=== PATIENT | male | born 1995 | race American Indian/Alaskan Native ===

== ENCOUNTER 2021-04-30 12:37 | Emergency (ER) | payer OTHER ==
[2021-04-30] MEDS ORDERED: TETANUS,DIPH,PERTUSS(ACELL) VACCINE 0.5 ML SYRINGE IM ONE (13:17)
[2021-04-30] MEDS ORDERED: ACETAMINOPHEN 500 MG TAB PO STA (13:17)
--- NOTE | 2021-04-30 13:20 | Emergency Department Report ---
ED General Adult HPI - General Chief complaint: Fall Stated complaint: HIT HEAD BLACKED OUT, GASH RT EYE Time Seen by Provider: 04/30/21 12:55 Source: patient, police Mode of arrival: Ambulatory Limitations: No Limitations - History of Present Illness Initial comments: 25-year-old -[place] male patient presents in police custody with complaints of head trauma, headache, and neck pain after fall injury onto concrete today. Patient states he did have loss of consciousness for a brief second. He admits to nausea without vomiting. He denies any vision changes, numbness/tingling/weakness in his limbs, difficulty with speech/ambulation, memory loss, or blood thinner use. He is unsure of his last tetanus vaccination. Patient rates pain at 8/10 severity. He denies any other injuries or pain Severity scale (0 -10): 8 - Related Data Previous Rx's Medication Instructions Recorded Last Taken Type Ibuprofen [Motrin 800 MG tab] 800 mg PO Q8HR PRN #20 tablet 04/30/21 Unknown Rx Mupirocin [Bactroban 2% OINT] 1 applic TP TID 7 Days #1 tube 04/30/21 Unknown Rx cephALEXin [Keflex] 500 mg PO Q12HR 7 Days #14 cap 04/30/21 Unknown Rx Allergies Allergy/AdvReac Type Severity Reaction Status Date / Time No Known Allergies Allergy Verified 04/30/21 13:29 ED Review of Systems ROS: Stated complaint: HIT HEAD BLACKED OUT, GASH RT EYE Other details as noted in HPI Constitutional: denies: malaise Eyes: denies: eye pain, vision change Respiratory: denies: shortness of breath Cardiovascular: denies: chest pain Gastrointestinal: nausea. denies: abdominal pain, vomiting Neurological: headache. denies: numbness, paresthesias, confusion, abnormal gait ED Past Medical Hx - Medications Home Medications: Home Medications Medication Instructions Recorded Confirmed Last Taken Type Ibuprofen [Motrin 800 MG tab] 800 mg PO Q8HR PRN #20 tablet 04/30/21 Unknown Rx Mupirocin [Bactroban 2% OINT] 1 applic TP TID 7 Days #1 tube 04/30/21 Unknown Rx cephALEXin [Keflex] 500 mg PO Q12HR 7 Days #14 cap 04/30/21 Unknown Rx ED Physical Exam - General Limitations: No Limitations General appearance: alert, in no apparent distress - Head Head exam: Present: normocephalic. Absent: atraumatic - Expanded Head Exam Expanded Head exam: Present: laceration (2 cm flap laceration noted through right mid eyebrow with mild active bleed, no obvious foreign bodies noted), hematoma (S mall hematoma noted to outer portion of right eyebrow). Absent: racoon eyes, oswald's sign, general tenderness - Eye Eye exam: Present: normal appearance, PERRL, EOMI. Absent: scleral icterus - Neck Neck exam: Present: tenderness (Bilateral paraspinal and spinal tenderness noted to palpation without obvious deformity), full ROM - Respiratory Respiratory exam: Absent: respiratory distress - Cardiovascular Cardiovascular Exam: Present: regular rate - Neurological Exam Neurological exam: Present: alert, oriented X3, CN II-XII intact, normal gait - Expanded Neurological Exam Expanded Cerebellar function: Heel to Laguerre: Normal Sensory exam: Upper Extremity Light Touch: Normal, Lower Extremity Light Touch: Normal Motor strength exam: RUE: 4, LUE: 4, RLE: 4, LLE: 4 Best Eye Response (Timmy): (4) open spontaneously Best Motor Response (Naylor): (6) obeys commands Best Verbal Response (Timmy): (5) oriented Naylor Total: 15 - Psychiatric Psychiatric exam: Present: normal affect, normal mood - Skin Skin exam: Present: warm, dry, intact, normal color. Absent: rash ED Course Vital Signs 04/30/21 12:44 Temperature 98.9 F Pulse Rate 66 Respiratory 18 Rate Blood Pressure 91/76 [Right] O2 Sat by Pulse 97 Oximetry - Laceration /Wound Repair Face Wound Location: face Wound Length (cm): 2 Wound's Depth, Shape: irregular, flap Wound Explored: no foreign body removed Irrigated w/ Saline (ccs): 50 Betadine Prep?: Yes Anesthesia: 1% Lidocaine Volume Anesthetic (ccs): 2 Suture Size/Type: 5:0, proline Number of Sutures: 6 (simple interrupted) Sterile Dressing Applied?: Yes Progress: Minimal bleeding occurred. Patient tolerated procedure well without any immediate complications ED Medical Decision Making - Radiology Data Radiology results: report reviewed CT head/brain wo con, CT cervical spine wo con INDICATION: occipital pain, R forehead lac/hematoma, head inju. TECHNIQUE: CT head and cervical spine without contrast. All CT scans at this location are performed using CT dose reduction for ALARA by means of automated exposure control. COMPARISON: None. FINDINGS: HEAD: Intracranial: Soto-white matter differentiation is maintained. No intracranial hemorrhage. No extra axial collection.. No hydrocephalus. No herniation. Sinuses: Paranasal sinuses and mastoid air cells are essentially clear. Orbits: Globes are intact Calvarium: Right frontal scalp soft tissue swelling. No underlying calvarial fracture. CERVICAL: Alignment: Normal alignment. Vertebrae: No fracture. Vertebral body heights are preserved. C1 and C2 are congruent. Atlantooccipital joint is maintained. Spondylolysis: No significant spondylosis. Soft tissues: No prevertebral soft tissue thickening. Additional findings: No significant additional findings. IMPRESSION: 1. No acute intracranial abnormality. 2.No cervical spine fracture. - Medical Decision Making Laceration repaired. CT head and neck are negative for any acute abnormalities. Pain control with Tylenol and ibuprofen. Neuro exam is normal. Patient is well-appearing and stable for discharge to police custody. Discussed concussion and importance of brain rest. Also discussed signs and symptoms that should prompt immediate return to the ED in detail with patient who verbalizes understanding. Wound care also discussed. Prophylactic antibiotics given Critical care attestation.: If time is entered above; I have spent that time in minutes in the direct care of this critically ill patient, excluding procedure time. ED Disposition Clinical Impression: Head injury, Laceration of face, Neck pain Disposition: 01 HOME / SELF CARE / HOMELESS Is pt being admited?: No Condition: Stable Instructions: Sutured Wound Care, [id number], Head Injury, Adult, Concussion, Adult Prescriptions: Mupirocin [Bactroban 2% OINT] 1 applic TP TID 7 Days #1 tube cephALEXin [Keflex] 500 mg PO Q12HR 7 Days #14 cap Ibuprofen [Motrin 800 MG tab] 800 mg PO Q8HR PRN #20 tablet PRN Reason: pain Referrals: PRIMARY CARE, [Referring] - 3-5 Days
--- NOTE | 2021-04-30 14:10 | Cat Scan Report ---
CT head/brain wo con, CT cervical spine wo con INDICATION: occipital pain, R forehead lac/hematoma, head inju. TECHNIQUE: CT head and cervical spine without contrast. All CT scans at this location are performed u sing CT dose reduction for ALARA by means of automated exposure control. COMPARISON: None. FINDINGS: HEAD: Intracranial: Soto-white matter differentiation is maintained. No intracranial hemorrhage. No extra a xial collection.. No hydrocephalus. No herniation. Sinuses: Paranasal sinuses and mastoid air cells are essentially clear. Orbits: Globes are intact Calvarium: Right frontal scalp soft tissue swelling. No underlying calvarial fracture. CERVICAL: Alignment: Normal alignment. Vertebrae: No fracture. Vertebral body heights are preserved. C1 and C2 are congruent. Atlantooccipi fidelina joint is maintained. Spondylolysis: No significant spondylosis. Soft tissues: No prevertebral soft tissue thickening. Additional findings: No significant additional findings. IMPRESSION: 1. No acute intracranial abnormality. 2.No cervical spine fracture. Signer Name: Aj Bahena MD Signed: 04/30/2021 2:06 PM Workstation Name: [id number]
[2021-04-30] MEDS ORDERED: IBUPROFEN 800 MG TAB PO STA (15:09)
[2021-04-30] MEDS ORDERED: HYDROGEN PEROXIDE 118 ML SOLUTION TP STA (15:15)
[2021-04-30 16:44] VITALS: BP 136/82
== END 2021-04-30 16:43 | disposition home or self-care (01) ==
LOC: ED 12:37
DX: S06.9X1A Unspecified intracranial injury with loss of consciousness of 30 minutes or less, initial encounter (principal); S01.81XA Laceration without foreign body of other part of head, initial encounter; M54.2 Cervicalgia; R11.0 Nausea; W19.XXXA Unspecified fall, initial encounter; Y93.89 Activity, other specified; Y92.89 Other specified places as the place of occurrence of the external cause; Y99.8 Other external cause status
CPT/HCPCS: 70450; 72125; 90471; 90715; 99283